=== PATIENT | male | born 1975 | race American Indian/Alaskan Native ===

== ENCOUNTER 2016-12-06 07:17 | Emergency (ER) | payer MEDICAID, OTHER ==
[2016-12-06 07:34] VITALS: BP 128/85; PULSE 72; RESP 18; TEMP 98.5; O2SAT 99
[2016-12-06 07:52] LABS: PH,URINE 6.5 (4.7-8.0); URINE APPEARANCE SL CLOUDY (CLEAR); URINE BILIRUBIN NEGATIVE (NEGATIVE); URINE BLOOD NEGATIVE (NEGATIVE); URINE COLOR YELLOW (YELLOW); URINE GLUCOSE (UA) NEGATIVE (NEGATIVE); URINE KETONE NEGATIVE (NEGATIVE); URINE LEUKOCYTE ESTERASE MODERATE Leu/uL (NEGATIVE); URINE PROTEIN NEGATIVE mg/dL (<30 mg/dL); URINE UROBILINOGEN 0.2 E.U./dL (<1 E.U./dL)
--- NOTE | 2016-12-06 07:56 | ED PDOC ---
Arrival/HPI - General Historian: Patient (f) - History of Present Illness Time/Duration: Prior to Arrival Symptom Onset: Sudden Symptom Course: Unchanged Quality: Other Activities at Onset: Rest Context: Home <Varun Galdamez - Last Filed: 12/06/16 11:47> <Anirudh Simmons - Last Filed: 12/06/16 11:49> - General Chief Complaint: Male Genitourinary Time Seen by Provider: 12/06/16 07:31 - History of Present Illness Narrative History of Present Illness (Text): 12/06/16 07:53 41yo M presenting with genital itching and penile discharge x1 day. pt states that he was sexually active with 3 partners in the last 6 months and a new partner recently, and he doesn't consistently use protection. pt denies dysuria , hematuria, fevers, chills, abdominal pain, or any other complaints. (Varun Galdamez) Past Medical History - Provider Review Nursing Documentation Reviewed: Yes - Past History Past History: Non-Contributing - Infectious Disease Hx of Infectious Diseases: None - Past Medical History Past Medical History: Non-Contributing - Cardiac Hx Cardiac Disorders: No - Pulmonary Hx Respiratory Disorders: No - Neurological Hx Neurological Disorder: No - HEENT Hx HEENT Disorder: No - Renal Hx Renal Disorder: No - Endocrine/Metabolic Hx Endocrine Disorders: No - Hematological/Oncological Hx Blood Disorders: No - Integumentary Hx Dermatological Disorder: No - Musculoskeletal/Rheumatological Hx Musculoskeletal Disorders: No - Gastrointestinal Hx Gastrointestinal Disorders: No - Genitourinary/Gynecological Hx Genitourinary Disorders: No - Psychiatric Hx Psychophysiologic Disorder: Yes Hx Anxiety: Yes Hx Schizophrenia: Yes Hx Substance Use: No - Past Surgical History Past Surgical History: No Previous - Anesthesia Hx Anesthesia: No <Varun Galdamez - Last Filed: 12/06/16 11:47> Family/Social History - Physician Review Nursing Documentation Reviewed: Yes Family/Social History: No Known Family HX Smoking Status: Never Smoked Hx Alcohol Use: Yes Frequency of alcohol use: Socially Hx Substance Use: No <Varun Galdamez - Last Filed: 12/06/16 11:47> Allergies/Home Meds <Varun Galdamez - Last Filed: 12/06/16 11:47> <Anirudh Simmons - Last Filed: 12/06/16 11:49> Allergies/Adverse Reactions: Allergies No Known Allergies Allergy (Verified 09/01/16 15:51) Home Medications: Home Meds Medication Instructions Recorded Confirmed Clonidine HCl [Catapres] 0.1 mg PO PRN PRN 12/06/16 12/06/16 Review of Systems - Physician Review All systems were reviewed & negative as marked: Yes - Review of Systems Constitutional: absent: Fevers Gastrointestinal: absent: Abdominal Pain Genitourinary Male: Other (penile discharge ). absent: Dysuria, Frequency, Hematuria Skin: Pruritis (genital) <Varun Galdamez - Last Filed: 12/06/16 11:47> Physical Exam Vital Signs Reviewed: Yes Appearance: Positive for: Well-Appearing Pain Distress: None Mental Status: Positive for: Alert and Oriented X 3 - Systems Exam Head: Present: Atraumatic, Normocephalic Pupils: Present: PERRL Extroacular Muscles: Present: EOMI Conjunctiva: Present: Normal Mouth: Present: Moist Mucous Membranes Neck: Present: Normal Range of Motion Respiratory/Chest: Present: Clear to Auscultation, Good Air Exchange Cardiovascular: Present: Regular Rate and Rhythm, Normal S1, S2 Abdomen: No: Tenderness, Distention Genitourinary Male: Present: Normal External Genitalia, Penile Discharge (thin clear fluid). No: Lesions, Testicle Tenderness, Penile Swelling, Testicle Swelling Back: Present: Normal Inspection Upper Extremity: Present: Normal Inspection Lower Extremity: Present: Normal Inspection. No: Edema Neurological: Present: CN II-XII Intact Skin: Present: Warm, Dry Psychiatric: Present: Alert, Oriented x 3 <Varun Galdamez - Last Filed: 12/06/16 11:47> Temperature: Afebrile Blood Pressure: Normal Pulse: Regular Respiratory Rate: Normal <Anirudh Simmons - Last Filed: 12/06/16 11:49> Vital Signs Temp Pulse Resp BP Pulse Ox 12/06/16 07:29 98.5 F 72 18 128/85 99 12/06/16 07:18 98.5 F 72 18 128/85 99 Medical Decision Making - Lab Interpretations I have reviewed the lab results: Yes <Varun Galdamez - Last Filed: 12/06/16 11:47> <Anirudh Simmons - Last Filed: 12/06/16 11:49> ED Course and Treatment: 12/06/16 08:00 Impression: 41yo M presenting with penile discharge likely 2/2 urethritis vs STI Plan: - UA - gonorrhea/chlamydia testing - Reassessment and Disposition Progress: (Varun Galdamez) 12/06/16 08:48 Patient seen and evaluated with medical staff credentialing coordinator. Treatment plan reviewed with medical staff credentialing coordinator. Patient examined by me. Patient is afebrile, nontoxic appearing. No testicular pain or swelling. He denies discharge, reports "itching " with urination denies pain. No rash. He is sexually active, denies prior hx of STD. Patient's ddx reviewed with him, given risk of urethritis, patient ordered dose of rocephin and zithromax. GC/chlamydia ordered patient advised on follow-up of these results in 2-3 days. Patient urinalysis reviewed with him he will be treated for possible UTI. Risks/side effects of medications reviewed with patient. (Anirudh Simmons) - Lab Interpretations Lab Results: Lab Results 12/06/16 07:47: Urine Color Yellow, Urine Appearance Sl cloudy, Urine pH 6.5, Ur Specific Crawford 1.010, Urine Protein Negative, Urine Glucose (UA) Negative, Urine Ketones Negative, Urine Blood Negative, Urine Nitrate Negative, Urine Bilirubin Negative, Urine Urobilinogen 0.2, Ur Leukocyte Esterase Moderate H, Urine RBC Negative, Urine WBC 10 - 15 - Medication Orders Current Medication Orders: Discontinued Medications Azithromycin (Zithromax) 1,000 mg PO STAT STA PRN Reason: Protocol Stop: 12/06/16 08:13 Last Admin: 12/06/16 08:17 Dose: 1,000 mg Ceftriaxone Sodium (Rocephin) 250 mg IM STAT STA PRN Reason: Protocol Stop: 12/06/16 08:12 Last Admin: 12/06/16 08:17 Dose: 250 mg IM Administration Charges Document 12/06/16 08:17 SRE (Rec: 12/06/16 08:17 SRE [id number]) Injection Site MAR Injection Site Left Gluteus Francisco Charges for Administration # of IM Administrations 1 <Varun Galdamez - Last Filed: 12/06/16 11:47> - Scribe Statement The provider has reviewed the documentation as recorded by the Scribe <Anirudh Simmons - Last Filed: 12/06/16 11:49> - Scribe Statement Mariah Quiros Provider Scribe Attestation: All medical record entries made by the Scribe were at my direction and personally dictated by me. I have reviewed the chart and agree that the record accurately reflects my personal performance of the history, physical exam, medical decision making, and the department course for this patient. I have also personally directed, reviewed, and agree with the discharge instructions and disposition. (Anirudh Simmons) Disposition/Present on Arrival - Present on Arrival Any Indicators Present on Arrival: No History of DVT/PE: No History of Uncontrolled Diabetes: No Urinary Catheter: No History of Decub. Ulcer: No History Surgical Site Infection Following: None - Disposition Have Diagnosis and Disposition been Completed?: Yes Disposition Time: 09:47 Patient Plan: Discharge <Varun Galdamez - Last Filed: 12/06/16 11:47> <Anirudh Simmons - Last Filed: 12/06/16 11:49> - Disposition Diagnosis: UTI (urinary tract infection), Urethritis Disposition: HOME/ ROUTINE Condition: GOOD Discharge Instructions (ExitCare): Nonspecific Urethritis in Men (ED), Urinary Tract Infection in Men (ED) Additional Instructions: For any fevers, any abdominal pain, any difficulty urinating, any testicular pain or swelling, any persistent or worsening of symptoms, get rechecked. Take antibiotics as directed. Thank you for letting us take care of you today. The emergency medical care you received today was directed at your acute symptoms. If you were prescribed any medication, please fill it and take as directed. It may take several days for your symptoms to resolve. Return to the Emergency Department if your symptoms worsen, do not improve, or if you have any other problems. Please contact your doctor or call one of the physicians/clinics you have been referred to that are listed on the Patient Visit Information form that is included in your discharge packet. Bring any paperwork you were given at discharge with you along with any medications you are taking to your follow up visit. Our treatment cannot replace ongoing medical care by a primary care provider (PCP) outside of the emergency department. Thank you for allowing the [facility] team to be part of your care today. If you had a blood, urine, or wound culture: It will take several days for the results, if any change in treatment is needed we will contact you. If you had an STI test: It will take 48 hours for the results. Please call after 1 week if you have not heard back. Prescriptions: Nitrofurantoin Macrocrystal [Nitrofurantoin] 100 mg PO BID #10 capsule Referrals: Mateus Begum MD [Primary Care Provider] - Follow up with primary Forms: [employer] (Malagasy)
[2016-12-06 08:09] LABS: URINE RBC NEGATIVE /hpf (0-2)
[2016-12-06] MEDS ORDERED: cefTRIAXone (Rocephin) 250 mg Inj IM STA (08:11)
[2016-12-06] MEDS ORDERED: Lidocaine 1% Inj (20ml) ONE (08:20)
== END 2016-12-06 08:48 | disposition home or self-care (01) ==
LOC: ED 07:17
DX: N34.2 Other urethritis (principal)
CPT/HCPCS: 81001; 87086; 87491; 87591; 96372; 99284; J0696

== ENCOUNTER 2017-04-18 19:56 | Emergency (ER) | payer MEDICAID, OTHER ==
[2017-04-18 20:16] VITALS: RESP 18
--- NOTE | 2017-04-18 21:58 | ED PDOC ---
Arrival/HPI - General Chief Complaint: Male Genitourinary Time Seen by Provider: 04/18/17 21:14 - History of Present Illness Narrative History of Present Illness (Text): 04/18/17 21:25 A 42 year old male, whose past medical history includes schizophrenia and anxiety, presents to the emergency department requesting urinary catheter to be removed. Patient reports recently discharged from [facility] last week after being treated for penis fracture. States having urinary catheter placed at time and left with it still on after discharge. Patient notes he is unable to go to the [facility] again and has been advised by his urologist to visit the ER to have catheter removed. Patient denies any difficulty of urine passing freely to leg bag. PMD: Dr. Mateus Begum Past Medical History - Provider Review Nursing Documentation Reviewed: Yes - Past History Past History: Non-Contributing - Infectious Disease Hx of Infectious Diseases: None - Past Medical History Past Medical History: Non-Contributing - Cardiac Hx Cardiac Disorders: No - Pulmonary Hx Respiratory Disorders: No - Neurological Hx Neurological Disorder: No - HEENT Hx HEENT Disorder: No - Renal Hx Renal Disorder: No - Endocrine/Metabolic Hx Endocrine Disorders: No - Hematological/Oncological Hx Blood Disorders: No - Integumentary Hx Dermatological Disorder: No - Musculoskeletal/Rheumatological Hx Musculoskeletal Disorders: No - Gastrointestinal Hx Gastrointestinal Disorders: No - Genitourinary/Gynecological Hx Genitourinary Disorders: No - Psychiatric Hx Psychophysiologic Disorder: Yes Hx Anxiety: Yes Hx Schizophrenia: Yes Hx Substance Use: No - Past Surgical History Past Surgical History: No Previous - Surgical History Other/Comment: "urinary sx" done at [facility] last week, 04/08/2017 - Anesthesia Hx Anesthesia: No Family/Social History - Physician Review Nursing Documentation Reviewed: Yes Family/Social History: No Known Family HX Smoking Status: Never Smoked Hx Alcohol Use: Yes Hx Substance Use: No Allergies/Home Meds Allergies/Adverse Reactions: Allergies No Known Allergies Allergy (Verified 04/18/17 20:12) Home Medications: Home Meds Medication Instructions Recorded Confirmed clonazePAM [clonAZEPAM] 0.5 mg PO DAILY PRN 12/08/16 04/18/17 Cephalexin [Keflex] 500 mg PO BID 04/18/17 04/18/17 Ibuprofen [Motrin Tab] 800 mg PO Q8H 04/18/17 04/18/17 traMADol [Ultram] 50 mg PO Q6H 04/18/17 04/18/17 Review of Systems - Physician Review All systems were reviewed & negative as marked: Yes - Review of Systems Constitutional: absent: Fevers, Night Sweats Genitourinary Male: absent: Urinary Output Changes Physical Exam Vital Signs Reviewed: Yes Vital Signs Temp Pulse Resp BP Pulse Ox 04/18/17 20:16 98.2 F 76 18 112/79 100 Temperature: Afebrile Blood Pressure: Normal Pulse: Regular Respiratory Rate: Normal Appearance: Positive for: Well-Appearing Pain Distress: None Mental Status: Positive for: Alert and Oriented X 3 - Systems Exam Respiratory/Chest: Present: Clear to Auscultation, Good Air Exchange. No: Respiratory Distress, Accessory Muscle Use Cardiovascular: Present: Regular Rate and Rhythm, Normal S1, S2. No: Murmurs Abdomen: Present: Normal Bowel Sounds. No: Tenderness, Distention, Peritoneal Signs Genitourinary Male: Present: Other (penis is wrapped and bandaged, juares catheter in penis with attached leg bag) Medical Decision Making ED Course and Treatment: 04/18/17 21:28 Impression: 42 year old male arrives requesting removal of juares catheter. Plan: -- Juares Catheter Removal -- Reassess and disposition Prior Visits: Notes and results from previous visits were reviewed. Patient was last seen in the emergency department on 12/08/2016 for request of refill for Klonopin. Patient was d/c home. Progress Notes: - Scribe Statement The provider has reviewed the documentation as recorded by the Kostas Whittington Provider Scribe Attestation: All medical record entries made by the Kostas were at my direction and personally dictated by me. I have reviewed the chart and agree that the record accurately reflects my personal performance of the history, physical exam, medical decision making, and the department course for this patient. I have also personally directed, reviewed, and agree with the discharge instructions and disposition. Disposition/Present on Arrival - Present on Arrival Any Indicators Present on Arrival: No History of DVT/PE: No History of Uncontrolled Diabetes: No Urinary Catheter: No History of Decub. Ulcer: No History Surgical Site Infection Following: None - Disposition Have Diagnosis and Disposition been Completed?: Yes Diagnosis: Encounter for Juares catheter removal Disposition: HOME/ ROUTINE Disposition Time: 22:08 Patient Plan: Discharge Patient Problems: Current Active Problems Problem Status Onset Encounter for Juares catheter removal Acute Condition: GOOD Additional Instructions: Follow up with your urologist tomorrow as instructed. Referrals: Mateus Begum MD [Primary Care Provider] - Follow up with primary Forms: [employer] (Divehi)
[2017-04-18 22:11] VITALS: BP 114/74; PULSE 79; TEMP 98; O2SAT 99
== END 2017-04-18 22:19 | disposition home or self-care (01) ==
LOC: ED 19:56
DX: Z46.6 Encounter for fitting and adjustment of urinary device (principal)